=== PATIENT | female | born 1990 | race Caucasian/White ===

== ENCOUNTER 2018-06-06 15:08 | Emergency (ER) | payer OTHER ==
[~2018-06-06] VITALS: Ht 160 cm; Wt 45.4 kg
[2018-06-06 15:13] VITALS: BP_SYST 134
[2018-06-06] MEDS ORDERED: CLINDAMYCIN 600 mg/50mL D5W 50 ML IV ONE (15:45)
[2018-06-06] MEDS ORDERED: LIDOCAINE/EPI 2% 1:100000 20 ML VIAL INJ ONE (15:45)
[2018-06-06] MEDS ORDERED: LIDOCAINE/PRILOCAINE 5 GM CREAM (EMLA) TP ONE (16:00)
[2018-06-06 16:35] VITALS: BP_SYST 134
== END 2018-06-06 16:35 | disposition left against medical advice (07) ==
LOC: SED 15:08
DX: L02.416 Cutaneous abscess of left lower limb (principal); L02.415 Cutaneous abscess of right lower limb; N39.0 Urinary tract infection, site not specified; F11.10 Opioid abuse, uncomplicated; F17.200 Nicotine dependence, unspecified, uncomplicated; R03.0 Elevated blood-pressure reading, without diagnosis of hypertension
CPT/HCPCS: 81025; 99283